=== PATIENT | male | born 1940 | race Caucasian/White ===

== ENCOUNTER → 2016-10-13 | Outpatient (CLI) | payer MEDICARE, OTHER ==
[~2016-10-13] MED LIST: /PANT40TA OR; /TAMS4CA PO; AMBI5TAB OR; ATEN50TA2 PO; BABY81CH OR; BENA40TA2 PO; COENCAP OR; COZA50TA18 OR; DARV100T PO; EFFE150C PO; EXCETAB PO; FLEXERIL PO; FURO20TA2 PO; GLUCOVANCE PO; HUMA100I3 SC; LANTINJ4 SC; LUMIGAN EYE DROPS OU; MULTIVIT PO; NEBIVOLOL OR; NIAC500C OR; NITR0.4S SL; NOVO70VL SC; OMEP20TA7 PO; PRED5TAB PO; REPA2TA OR; SIMV20TA2 OR; SIMV20TA2 PO; SPIR25TA2 OR; TRAM50TA2 PO; VENL100T OR
[2016-10-13 13:57] LABS: ALBUMIN 3.5 GM/DL (3.2-5.2); ALBUMIN/GLOBULIN RATIO 1.09 (1.00-1.93); BILIRUBIN,TOTAL 0.5 MG/DL (0.2-1.0); CALCIUM LEVEL 8.8 MG/DL (8.8-10.2); CREATININE FOR GFR 1.36 MG/DL (0.70-1.30); GLOMERULAR FILTRATION RATE 54.1 (>42); POTASSIUM SERUM 4.5 MEQ/L (3.5-5.1); TOTAL PROTEIN 6.7 GM/DL (6.4-8.2)
== END ==
LOC: M SMT 09:25
PROVIDERS: ATTEND Physician Assistant
DX: E11.65 Type 2 diabetes mellitus with hyperglycemia (principal)

== ENCOUNTER → 2016-12-26 | Outpatient (CLI) | payer MEDICARE, OTHER ==
[~2016-12-26] MED LIST changes: +ACET-159 PO; +ASPI1TAB24 PO; +FISH1000 PO; +FLOM5CAP PO; +HYDR25T PO; +LOSA100T36 PO; +MULT1TAB10 PO; +OMEP20CA3 PO; +SPIR25TA2 PO; +TRES1INJ SC; +VENL150T PO
[2016-12-26 12:45] LABS: ALBUMIN 3.5 GM/DL (3.2-5.2); ALBUMIN/GLOBULIN RATIO 1.06 (1.00-1.93); ALKALINE PHOSPHATASE 94 U/L (45-117); ALT/SGPT 27 U/L (12-78); ANION GAP 8 MEQ/L (8-16); AST/SGOT 16 U/L (15-37); BILIRUBIN,TOTAL 0.6 MG/DL (0.2-1.0); BLOOD UREA NITROGEN 20 MG/DL (7-18); CALCIUM LEVEL 8.6 MG/DL (8.8-10.2); CARBON DIOXIDE LEVEL 27 MEQ/L (21-32); CHLORIDE LEVEL 103 MEQ/L (98-107); CHOLESTEROL LEVEL 183 MG/DL (<200); CREATININE FOR GFR 1.21 MG/DL (0.70-1.30); FREE T4 1.07 NG/DL (0.76-1.46); GLOMERULAR FILTRATION RATE > 60.0 (>42); GLUCOSE, FASTING 251 MG/DL (83-110); POTASSIUM SERUM 4.1 MEQ/L (3.5-5.1); SODIUM LEVEL 138 MEQ/L (136-145); TOTAL PROTEIN 6.8 GM/DL (6.4-8.2); TRIGLYCERIDES LEVEL 215 MG/DL (<150)
== END ==
LOC: M WUC 09:50
PROVIDERS: ATTEND Family Medicine
DX: E11.65 Type 2 diabetes mellitus with hyperglycemia (principal)

== ENCOUNTER → 2017-01-03 | Outpatient (CLI) | payer MEDICARE, OTHER ==
[~2017-01-03] MED LIST changes: +BYST5TAB2 PO; +GABA-283 PO; +NORCOTAB PO; +TYLE325T5 PO
--- NOTE | 2017-01-03 15:20 | REP ---
Left hip series: Two views. History: Pain in the left hip. Findings: AP and frog-leg views of the left hip demonstrate smooth rounded femoral head and intact hip joint space. Periarticular soft tissues are unremarkable. No erosive changes seen. Impression: Negative views of the left hip. Signed by Dawood Simms MD 01/03/2017 03:53 P
== END ==
LOC: M SMT 11:53
PROVIDERS: ATTEND Physician Assistant
DX: M25.552 Pain in left hip (principal)

== ENCOUNTER 2017-01-06 09:13 | Emergency (ER) | payer MEDICARE, OTHER ==
[~2017-01-06] VITALS: Ht 188 cm; Wt 111.6 kg
[~2017-01-06 09:13] MED LIST changes: -BYST5TAB2 PO; -GABA-283 PO; -NORCOTAB PO; -TYLE325T5 PO
[2017-01-06] MEDS ORDERED: BYST5TAB2 PO (09:28)
[2017-01-06] MEDS ORDERED: GABA-283 PO (09:28)
[2017-01-06] MEDS ORDERED: TYLE325T5 PO (09:28)
[2017-01-06] MEDS ORDERED: NORCO, ANEXSIA 5/325MG TABLET (HYDROcodone/ACETAMINOPHEN) PO ONE (10:15)
--- NOTE | 2017-01-06 10:44 | REP ---
Left lower extremity Duplex Doppler venous ultrasound: Real time compression and duplex Doppler interrogation of the left lower extremity deep venous system is performed. The left common femoral, superficial femoral and popliteal veins are fully compressible with transducer pressure and demonstrate normal spontaneous and phasic flow, without evidence of deep venous thrombosis. Impression: No evidence of deep venous thrombosis of the left lower extremity femoral popliteal venous system. Signed by Aniceto Loya MD 01/06/2017 10:35 A
[2017-01-06] MEDS ORDERED: NORCOTAB PO (11:07)
[2017-01-06 11:13] VITALS: BP 152/78
[2017-01-11] MEDS ORDERED: VENL100T PO (14:07)
[2017-01-11] MEDS ORDERED: KETO10TAB PO (14:07)
[2017-01-11] MEDS ORDERED: ORPH-8 PO (14:07)
== END 2017-01-06 11:22 | disposition home or self-care (01) ==
LOC: M ED 10:18
DX: M54.32 Sciatica, left side (principal); M79.89 Other specified soft tissue disorders

== ENCOUNTER → 2017-01-18 | Day surgery (SDC) | payer MEDICARE, OTHER ==
[~2017-01-18] VITALS: Ht 188 cm; Wt 111.6 kg
[~2017-01-18] MED LIST changes: +ACETAMINOPHEN 325 MG TAB PO PRN; +ACETYLCHOLINE OPHTH SOLN 1% 2ML As Ordered ONE; +AcetaZOLAMIDE 500 MG ER CAP PO ONE; +BSS with VANC/TOB/EPI for EYE CASES IR ONE; +BYST5TAB2 PO; +CEFUROXIME 1MG/0.1ML INTRACAMERAL INJ As Ordered ONE; +CYCLOPENTOLATE 2% OPHTH SOLN OD ONE; +D5W/0.2% SODIUM CHLORIDE 250 ML IV SCH; +GABA-283 PO; +HEALON DUET (HEALON 10MG/ML 0.55ML & HEALON ENDOCOAT 30MG/ML 0.85ML) As Ordered ONE; +HumaLOG INSULIN (NovoLOG) PER UNIT As Ordered ONE; +HumaLOG INSULIN (NovoLOG) PER UNIT SC ONE; +KETO10TAB PO; +KETOROLAC 0.5% OPHTH SOLN OD ONE; +LIDOCAINE 1% SDV 5 ML VIAL As Ordered ONE; +LIDOCAINE 4% INJ 5 ML AMP OU ONE; +MIDAZOLAM INJ 2 MG/2 ML VIAL (J2250) As Ordered ONE; +NORCOTAB PO; +OFLOXACIN 0.3 % (OCUFLOX) OPTH SOL 5ML OD ONE; +ORPH-8 PO; +PHENYLEPHRINE 2.5% OPHTH SOL 2ML OD ONE; +POVIDONE-IODINE 5% OPHTH PREP SOL 30ML As Ordered ONE; +PROPARACAINE 0.5% OPHTH SOL 15ML OD PRN; +TRIMETHOBENZAMIDE 300 MG CAP PO PRN; +TROPICAMIDE 1% OPHTH SOLN 2 ML OD ONE; +TYLE325T5 PO; +VENL100T PO; +fentaNYL 100 MCG/2 ML INJECTION (J3010) As Ordered ONE
[2017-01-18 09:00] VITALS: BP 182/88
--- NOTE | 2017-01-18 12:38 | RO ---
DATE OF SURGERY: 01/18/2017 PREOPERATIVE DIAGNOSES: Cataract right eye, myosis right eye, glaucoma right eye. POSTOPERATIVE DIAGNOSES: PROCEDURE: Phacoemulsification with intraocular lens implantation power PCB00 18.5 diopter, also placement of the Malyugin ring 7 mm ring and endocyclophotocoagulation, along with placement of the Glaukos iStent right eye. SURGEON: Bob Adams MD EMERGENCY DETAIL DRIVER: None. ANESTHESIA: DESCRIPTION OF PROCEDURE: Procedure in detail: The patient was brought to the operating room, laid in supine position. The right eye was prepped and draped in a sterile fashion for ophthalmic surgery. Lid speculum was placed. A sideport incision was made, and EndoCoat was injected into the anterior chamber. A temporal clear cornea incision was then made with a 2.5 mm keratome, and capsulorrhexis was done. This was followed by hydrodissection and phacoemulsification in a [id number] method within the capsular bag. Extra cortical material was then aspirated and Healon injected into the capsular bag. This was followed by injection of intraocular lens into the bag. Healon was then placed in the ciliary sulcus to visualize the ciliary process on the video screen with the help of the EndoProbe. Endocyclophotocoagulation was then carried out along 280 degrees at 0.25 mW. Good results were noted as the ciliary processes were observed to shrink. After this, the Healon was placed into the anterior chamber to visualize the infranasal trabecular meshwork under high magnification with the patient's head turned away from the surgeon and microscope turned towards the surgeon. With the help of the goniolens, the iStent was placed. Good reflux of blood was noted. Excess viscoelastic was then aspirated and the wound hydrated. Lid speculum removed. The patient returned to the recovery room in stable condition.
== END | disposition home or self-care (01) ==
LOC: M SDC 05:50
PROVIDERS: ATTEND Ophthalmology
DX: H26.9 Unspecified cataract (principal); H57.03 Miosis; H40.9 Unspecified glaucoma; I25.2 Old myocardial infarction; I10 Essential (primary) hypertension; E78.00 Pure hypercholesterolemia, unspecified; R60.0 Localized edema; E10.40 Type 1 diabetes mellitus with diabetic neuropathy, unspecified; E04.1 Nontoxic single thyroid nodule; R13.10 Dysphagia, unspecified; K21.9 Gastro-esophageal reflux disease without esophagitis; M12.9 Arthropathy, unspecified; R29.898 Other symptoms and signs involving the musculoskeletal system; M54.2 Cervicalgia; M54.5 Low back pain; G89.29 Other chronic pain; L85.3 Xerosis cutis; F41.9 Anxiety disorder, unspecified; F32.9 Major depressive disorder, single episode, unspecified; G43.909 Migraine, unspecified, not intractable, without status migrainosus; R06.83 Snoring; G47.33 Obstructive sleep apnea (adult) (pediatric); N40.0 Benign prostatic hyperplasia without lower urinary tract symptoms; Z79.899 Other long term (current) drug therapy; Z79.4 Long term (current) use of insulin; Z79.82 Long term (current) use of aspirin; Z86.11 Personal history of tuberculosis
CPT/HCPCS: 66711; 66982; C1783; J2250; J3010; V2632

== ENCOUNTER → 2017-03-29 | Outpatient (CLI) | payer MEDICARE, OTHER ==
[~2017-03-29] MED LIST changes: -ACETAMINOPHEN 325 MG TAB PO PRN; -ACETYLCHOLINE OPHTH SOLN 1% 2ML As Ordered ONE; +ASPI-161 PO; -ASPI1TAB24 PO; -AcetaZOLAMIDE 500 MG ER CAP PO ONE; -BSS with VANC/TOB/EPI for EYE CASES IR ONE; -CEFUROXIME 1MG/0.1ML INTRACAMERAL INJ As Ordered ONE; -CYCLOPENTOLATE 2% OPHTH SOLN OD ONE; -D5W/0.2% SODIUM CHLORIDE 250 ML IV SCH; +FARX1TAB3 PO; -HEALON DUET (HEALON 10MG/ML 0.55ML & HEALON ENDOCOAT 30MG/ML 0.85ML) As Ordered ONE; +HYDR-3363 PO; -HYDR25T PO; -HumaLOG INSULIN (NovoLOG) PER UNIT As Ordered ONE; -HumaLOG INSULIN (NovoLOG) PER UNIT SC ONE; -KETOROLAC 0.5% OPHTH SOLN OD ONE; -LIDOCAINE 1% SDV 5 ML VIAL As Ordered ONE; -LIDOCAINE 4% INJ 5 ML AMP OU ONE; -MIDAZOLAM INJ 2 MG/2 ML VIAL (J2250) As Ordered ONE; -OFLOXACIN 0.3 % (OCUFLOX) OPTH SOL 5ML OD ONE; -PHENYLEPHRINE 2.5% OPHTH SOL 2ML OD ONE; -POVIDONE-IODINE 5% OPHTH PREP SOL 30ML As Ordered ONE; -PROPARACAINE 0.5% OPHTH SOL 15ML OD PRN; -TRIMETHOBENZAMIDE 300 MG CAP PO PRN; -TROPICAMIDE 1% OPHTH SOLN 2 ML OD ONE; -fentaNYL 100 MCG/2 ML INJECTION (J3010) As Ordered ONE
[2017-03-29 10:41] LABS: ANION GAP 5 MEQ/L (8-16); BLOOD UREA NITROGEN 13 MG/DL (7-18); CALCIUM LEVEL 9.1 MG/DL (8.8-10.2); CARBON DIOXIDE LEVEL 32 MEQ/L (21-32); CHLORIDE LEVEL 105 MEQ/L (98-107); CREATININE FOR GFR 1.15 MG/DL (0.70-1.30); GLOMERULAR FILTRATION RATE > 60.0 (>42); GLUCOSE, FASTING 207 MG/DL (83-110); POTASSIUM SERUM 4.2 MEQ/L (3.5-5.1); SODIUM LEVEL 142 MEQ/L (136-145)
== END ==
LOC: M SMT 08:35
PROVIDERS: ATTEND Physician Assistant
DX: E11.65 Type 2 diabetes mellitus with hyperglycemia (principal)

== ENCOUNTER 2017-04-11 09:07 | Emergency (ER) | payer MEDICARE, OTHER ==
[~2017-04-11] VITALS: Ht 188 cm; Wt 107.7 kg
[2017-04-11 09:07] VITALS: BP 162/72
[~2017-04-11 09:07] MED LIST changes: -FARX1TAB3 PO
[2017-06-22] MEDS ORDERED: FARX1TAB3 PO (10:17)
== END 2017-04-11 10:15 | disposition home or self-care (01) ==
LOC: M ED 09:07
DX: H10.31 Unspecified acute conjunctivitis, right eye (principal); I71.4 Abdominal aortic aneurysm, without rupture; E04.2 Nontoxic multinodular goiter; E11.9 Type 2 diabetes mellitus without complications; I10 Essential (primary) hypertension; I25.2 Old myocardial infarction; Z79.82 Long term (current) use of aspirin; Z79.899 Other long term (current) drug therapy

== ENCOUNTER → 2017-04-11 | Outpatient (CLI) | payer MEDICARE, OTHER ==
--- NOTE | 2017-04-11 09:44 | REP ---
Thyroid sonography: History: Nontoxic thyroid nodule. Comparison study November 09, 2015. Findings: The patient is status post right thyroid lobectomy in the . The left lobe is enlarged measuring 6.6 x 3.9 x 3.3 cm. This is slightly larger than on the November 09, 2015 study. There is a 2.6 x 1.6 x 2.0 cm hypoechoic ill-defined nodule in the upper pole. A 2.0 x 1.5 x 1.8 cm nodule is seen more inferiorly in the left lobe. The upper pole lesion measures a little larger than on the prior study. Impression: Right thyroid lobectomy. Two hypoechoic solid nodules in the left lobe consistent with multinodular goiter. Left lobe is somewhat enlarged. Signed by Dawood Simms MD 04/11/2017 04:01 P
== END ==
LOC: M RAD 08:27
PROVIDERS: ATTEND Physician Assistant Medical
DX: E04.2 Nontoxic multinodular goiter (principal)

== ENCOUNTER → 2017-04-11 | Outpatient (CLI) | payer MEDICARE, OTHER ==
--- NOTE | 2017-04-11 09:42 | REP ---
Abdominal aortic sonography: History: Abdominal aortic aneurysm without rupture. Findings: The abdominal aorta measures 1.3 x 1.3 cm in AP by transverse dimension at the diaphragmatic hiatus. At mid aortic level, its dimensions are 1.3 x 1.7 cm AP by transverse. There is a distal aortic aneurysm which is small measuring 2.9 cm anterior to posterior by 2.8 cm transverse. The common iliac arteries are not aneurysmal measuring 0.8 and 0.7 cm in AP dimension on the right and left respectively. No periaortic disease is seen. Impression: Small infrarenal abdominal aortic aneurysm, 2.9 cm anterior to posterior. Signed by Dawood Simms MD 04/11/2017 04:01 P
== END ==
LOC: M RAD 08:30
PROVIDERS: ATTEND Family Medicine
DX: I71.4 Abdominal aortic aneurysm, without rupture (principal)

== ENCOUNTER → 2017-04-14 | Outpatient (CLI) | payer MEDICARE, OTHER ==
[~2017-04-14] MED LIST changes: +FARX1TAB3 PO
== END ==
LOC: M SMT 09:28
PROVIDERS: ATTEND Physician Assistant Medical
DX: E04.1 Nontoxic single thyroid nodule (principal)

== ENCOUNTER 2017-07-05 09:30 | Day surgery (SDC) | payer MEDICARE, OTHER ==
[~2017-07-05] VITALS: Ht 188 cm; Wt 107.0 kg
[~2017-07-05 09:30] MED LIST changes: +ACETAMINOPHEN 325 MG TAB PO PRN; +BSS with VANC/TOB/EPI for EYE CASES IR ONE; +CYCLOPENTOLATE 2% OPHTH SOLN 2ML BTL OS ONE; +LIDOCAINE 3.5 % 1ML OPHTH TOPICAL GEL OU ONE; +MIDAZOLAM INJ 2 MG/2 ML VIAL (J2250) As Ordered ONE; +OFLOXACIN 0.3 % (OCUFLOX) OPTH SOL 5ML OS ONE; +PHENYLEPHRINE 2.5% OPHTH SOL 2ML OS ONE; +PROPARACAINE 0.5% OPHTH SOL 15ML OS PRN; +TROPICAMIDE 1% OPHTH SOLN 2ML OS ONE; +fentaNYL 100 MCG/2 ML INJECTION (J3010) As Ordered ONE
[2017-07-05] MEDS ORDERED: LR 500 ML IV ONE (09:45)
[2017-07-05] MEDS ORDERED: POVIDONE-IODINE 5% OPHTH PREP SOL 30ML As Ordered ONE (10:30)
[2017-07-05] MEDS ORDERED: LIDOCAINE 1% SDV 5 ML VIAL As Ordered ONE (10:31)
[2017-07-05] MEDS ORDERED: HEALON DUET (HEALON 10MG/ML 0.55ML & HEALON ENDOCOAT 30MG/ML 0.85ML) As Ordered ONE (10:31)
[2017-07-05] MEDS ORDERED: CEFUROXIME 1MG/0.1ML INTRACAMERAL INJ As Ordered ONE (10:31)
[2017-07-05] MEDS ORDERED: AcetaZOLAMIDE 500 MG ER CAP PO ONE (11:30)
[2017-07-05] MEDS ORDERED: TRIMETHOBENZAMIDE 300 MG CAP PO PRN (11:30)
[2017-07-05] MEDS ORDERED: KETOROLAC 0.5% OPHTH SOLN OS ONE (11:30)
[2017-07-05 11:45] VITALS: BP 158/80
--- NOTE | 2017-07-06 07:24 | RO ---
DATE OF PROCEDURE: 07/05/2017 PREPROCEDURE DIAGNOSES: Glaucoma left eye, cataract left eye and myosis and floppy iris syndrome, left eye. POSTPROCEDURE DIAGNOSES: PROCEDURE: Phacoemulsification intraocular lens implantation of Hoya power 18.5 diopters along with insertion of the Malyugin ring 7 mm and endocyclophotocoagulation along with placement of the Glaukos iStent device. SURGEON: Dr. Bob Adams, BRIDGE WELDER: None. ANESTHESIA: COMPLICATIONS: None. DESCRIPTION OF PROCEDURE: The patient was brought to the operating room, laid in supine position. The eye was prepped and draped in a sterile fashion for ophthalmic surgery and a lid speculum was placed. A sideport incision was made and EndoCoat was injected into the anterior chamber. This was followed by a 2.5 mm keratome, to do the temporal clear corneal incision. This was followed by capsulorrhexis and hydrodissection. Prior to capsulorrhexis the floppy iris and myotic pupil was then dilated by insertion of the 7 mm Malyugin ring with the help of the introducer. Once the pupil was dilated, capsulorrhexis hydrodissection was carried out. Phacoemulsification was done in a divided and conquer method within the capsular bag followed by aspiration of the cortical material. Healon was then placed in the capsular bag and intraocular lens inserted. Healon was then placed in the ciliary sulcus to visualize the ciliary processes on the video screen with the help of the EndoProbe. With the setting at 0.25 to 3 milliwatts, endocyclophotocoagulation was then carried out for 280 degrees with good shrinking of the ciliary process noted on the video screen. Following this, Healon was then placed in the anterior chamber. The patient's eye was rotated away from the surgeon and the head as well. The microscope was rotated towards the surgeon. Under high magnification, with the help of the Gonio lens, the Glaukos iStent was placed in the infranasal quadrant. Good blood reflux was noted. Excess viscoelastic was aspirated, the wound was hydrated. Malyugan ring was removed, intracameral cefuroxime was given and the patient was transferred to the recovery room in stable condition after removing the lid speculum.
== END 2017-07-05 11:50 | disposition home or self-care (01) ==
LOC: M SDC 09:30
PROVIDERS: ATTEND Ophthalmology
DX: H26.9 Unspecified cataract (principal); H57.03 Miosis; H21.81 Floppy iris syndrome; H40.9 Unspecified glaucoma; R07.9 Chest pain, unspecified; I25.10 Atherosclerotic heart disease of native coronary artery without angina pectoris; I25.2 Old myocardial infarction; I10 Essential (primary) hypertension; E78.00 Pure hypercholesterolemia, unspecified; R60.0 Localized edema; E11.9 Type 2 diabetes mellitus without complications; E04.1 Nontoxic single thyroid nodule; R13.10 Dysphagia, unspecified; K21.9 Gastro-esophageal reflux disease without esophagitis; M12.9 Arthropathy, unspecified; M54.2 Cervicalgia; M79.671 Pain in right foot; R20.2 Paresthesia of skin; F41.9 Anxiety disorder, unspecified; L85.3 Xerosis cutis; R29.898 Other symptoms and signs involving the musculoskeletal system; F32.9 Major depressive disorder, single episode, unspecified; G43.909 Migraine, unspecified, not intractable, without status migrainosus; R06.83 Snoring; G47.33 Obstructive sleep apnea (adult) (pediatric); G62.9 Polyneuropathy, unspecified; N40.0 Benign prostatic hyperplasia without lower urinary tract symptoms; Z79.82 Long term (current) use of aspirin; Z79.4 Long term (current) use of insulin; Z86.11 Personal history of tuberculosis; Z97.8 Presence of other specified devices
CPT/HCPCS: 66711; 66982; C1783; J2250; J3010; V2632

== ENCOUNTER → 2017-08-29 | Outpatient (CLI) | payer MEDICARE, OTHER ==
[~2017-08-29] MED LIST changes: -ACETAMINOPHEN 325 MG TAB PO PRN; -BSS with VANC/TOB/EPI for EYE CASES IR ONE; -CYCLOPENTOLATE 2% OPHTH SOLN 2ML BTL OS ONE; -LIDOCAINE 3.5 % 1ML OPHTH TOPICAL GEL OU ONE; -MIDAZOLAM INJ 2 MG/2 ML VIAL (J2250) As Ordered ONE; -OFLOXACIN 0.3 % (OCUFLOX) OPTH SOL 5ML OS ONE; -PHENYLEPHRINE 2.5% OPHTH SOL 2ML OS ONE; -PROPARACAINE 0.5% OPHTH SOL 15ML OS PRN; -TROPICAMIDE 1% OPHTH SOLN 2ML OS ONE; -fentaNYL 100 MCG/2 ML INJECTION (J3010) As Ordered ONE
--- NOTE | 2017-08-29 13:25 | REP ---
CT CERVICAL SPINE WITHOUT CONTRAST: HISTORY: Spondylosis. The patient is status post C5-7 anterior spinal fusion. A fixation plate and bone graft material are present. Disc bulges are present at the C3-4 and C4-5 levels. Small posterior osteophytes are present at the C5-6 and C6-7 levels. There is minimal narrowing of the spinal canal. Uncinate process and/or facet hypertrophy are present at the C3-4 through C5-6 levels. These findings produce minimal narrowing of the neural foramina. There is partial fusion of the anterior C1_ neural arch with the odontoid process with associated sclerosis and osteophyte formation. There is no subluxation. There is loss of the normal lordotic curve. IMPRESSION: 1. The patient is status post C5-7 anterior spinal fusion. There is anatomic alignment. 2. There is cervical spondylosis at the C1-2 and C3-4 through C6-7 levels. Signed by Dejuan Ortiz MD 08/29/2017 01:34 P
== END ==
LOC: M RAD 09:20
PROVIDERS: ATTEND Nurse Practitioner Family
DX: M47.812 Spondylosis without myelopathy or radiculopathy, cervical region (principal)

== ENCOUNTER → 2017-10-25 | Outpatient (CLI) | payer MEDICARE, OTHER ==
[2017-10-25 14:02] LABS: ANION GAP 5 MEQ/L (8-16); BLOOD UREA NITROGEN 22 MG/DL (7-18); CALCIUM LEVEL 9.4 MG/DL (8.8-10.2); CARBON DIOXIDE LEVEL 32 MEQ/L (21-32); CHLORIDE LEVEL 103 MEQ/L (98-107); GLOMERULAR FILTRATION RATE 52.2 (>42); GLUCOSE, FASTING 170 MG/DL (70-100); POTASSIUM SERUM 4.9 MEQ/L (3.5-5.1); SODIUM LEVEL 140 MEQ/L (136-145)
[2017-10-25 14:26] LABS: ESTIMATED AVERAGE GLUCOSE 177 MG/DL (60-110); HEMOGLOBIN A1c 7.8 %
== END ==
LOC: M SMT 10:08
DX: M54.2 Cervicalgia (principal); E11.42 Type 2 diabetes mellitus with diabetic polyneuropathy
CPT/HCPCS: 83036

== ENCOUNTER → 2018-06-04 | Outpatient (CLI) | payer MEDICARE, OTHER ==
[2018-06-04 23:35] LABS: ANION GAP 9 MEQ/L (8-16); BLOOD UREA NITROGEN 20 MG/DL (7-18); CALCIUM LEVEL 9.2 MG/DL (8.8-10.2); CARBON DIOXIDE LEVEL 26 MEQ/L (21-32); CHLORIDE LEVEL 106 MEQ/L (98-107); CREATININE FOR GFR 1.27 MG/DL (0.70-1.30); GLOMERULAR FILTRATION RATE 58.4 (>42); GLUCOSE, FASTING 154 MG/DL (70-100); POTASSIUM SERUM 4.4 MEQ/L (3.5-5.1); SODIUM LEVEL 141 MEQ/L (136-145)
[2018-06-05 01:00] LABS: ESTIMATED AVERAGE GLUCOSE 183 MG/DL (60-110)
== END ==
LOC: M SMT 09:05
DX: E11.42 Type 2 diabetes mellitus with diabetic polyneuropathy (principal)
CPT/HCPCS: 83036

== ENCOUNTER → 2018-06-18 | Outpatient (REF) | payer MEDICARE, OTHER | LOC: M LAB REF 19:29 | DX: D36.7 Benign neoplasm of other specified sites (principal) | CPT/HCPCS: 88305 ==

== ENCOUNTER → 2018-09-27 | Outpatient (REF) | payer MEDICARE, OTHER ==
[~2018-09-27] MED LIST changes: +FLOM0.4C39 PO; -FLOM5CAP PO; -GABA-283 PO; +GABA-845 PO; -LOSA100T36 PO; +LOSA100T50 PO; +SPIR-10 PO; -SPIR25TA2 PO
[2018-09-27 14:50] LABS: ALBUMIN 3.5 GM/DL (3.2-5.2); BILIRUBIN,TOTAL 0.6 MG/DL (0.2-1.0); CALCIUM LEVEL 8.8 MG/DL (8.8-10.2); CHOLESTEROL RISK RATIO 4.676 (<5); CREATININE FOR GFR 1.3 MG/DL (0.70-1.30); FREE T4 0.94 NG/DL (0.76-1.46); GLOMERULAR FILTRATION RATE 56.7 (>42); POTASSIUM SERUM 4.2 MEQ/L (3.5-5.1); THYROID STIMULATING HORMONE 1.88 uIU/ML (0.358-3.740); TOTAL PROTEIN 6.5 GM/DL (6.4-8.2)
[2018-09-27 14:51] LABS: BASO # 0.1 10^3/uL (0.0-0.2); BASO % 0.8 % (0.0-1.0); EOS # 0.3 10^3/uL (0.0-0.50); EOS % 3.7 % (0.0-3.0); HEMATOCRIT 45.7 % (42.0-52.0); HEMOGLOBIN 15.4 g/dl (13.5-17.5); LYMPH # 2.2 10^3/uL (1.5-4.5); LYMPH % 27.8 % (24.0-44.0); MEAN CORPUSCULAR HEMOGLOBIN 30.4 pg (27.0-33.0); MEAN CORPUSCULAR HGB CONC 33.7 g/dl (32.0-36.5); MEAN CORPUSCULAR VOLUME 90.3 fl (80.0-96.0); MONO # 0.6 10^3/uL (0.0-0.8); MONO % 7.6 % (0.0-5.0); NEUTROPHILS # 4.6 10^3/uL (1.8-7.7); NEUTROPHILS % 59.5 % (36.0-66.0); PLATELET COUNT, AUTOMATED 203 10^3/uL (150-450); RED BLOOD COUNT 5.06 10^6/uL (4.30-6.10); WHITE BLOOD COUNT 7.8 10^3/uL (4.0-10.0)
[2018-09-27 17:28] LABS: MAU/CREAT RATIO 99.4 MCG/MG (0.0-30.0)
[2018-09-27 22:25] LABS: HEMOGLOBIN A1c 9.1 %
== END ==
LOC: M SMT 13:15
PROVIDERS: ATTEND Physician Assistant
DX: E11.42 Type 2 diabetes mellitus with diabetic polyneuropathy (principal); E78.2 Mixed hyperlipidemia; I71.4 Abdominal aortic aneurysm, without rupture; I10 Essential (primary) hypertension

== ENCOUNTER → 2019-01-28 | Outpatient (CLI) | payer MEDICARE, OTHER ==
[~2019-01-28] MED LIST changes: -/PANT40TA OR; -/TAMS4CA PO; +HYDR-3715 PO; -NORCOTAB PO; -ORPH-8 PO; +ORPH100T2 PO; +PROT1TAB2 OR; -REPA2TA OR; +REPA2TAB5 OR; -VENL150T PO; +VENL150T14 PO
[2019-01-28 10:38] LABS: BASO # 0.1 10^3/uL (0.0-0.2); EOS # 0.3 10^3/uL (0.0-0.50); EOS % 3.3 % (0.0-3.0); HEMATOCRIT 45.3 % (42.0-52.0); HEMOGLOBIN 15.4 g/dl (13.5-17.5); LYMPH # 1.7 10^3/uL (1.5-4.5); LYMPH % 20.9 % (24.0-44.0); MEAN CORPUSCULAR VOLUME 88.1 fl (80.0-96.0); MONO # 0.7 10^3/uL (0.0-0.8); MONO % 8.8 % (0.0-5.0); NEUTROPHILS # 5.3 10^3/uL (1.8-7.7); NEUTROPHILS % 65.6 % (36.0-66.0); PLATELET COUNT, AUTOMATED 205 10^3/uL (150-450); RED BLOOD COUNT 5.14 10^6/uL (4.30-6.10)
[2019-01-28 10:50] LABS: HEMOGLOBIN A1c 8.2 %
[2019-01-28 11:05] LABS: ALBUMIN 3.5 GM/DL (3.2-5.2); BILIRUBIN,TOTAL 0.6 MG/DL (0.2-1.0); CALCIUM LEVEL 8.5 MG/DL (8.8-10.2); CREATININE FOR GFR 1.31 MG/DL (0.70-1.30); GLOMERULAR FILTRATION RATE 56.2 (>42); TOTAL PROTEIN 6.6 GM/DL (6.4-8.2)
== END ==
LOC: M SMT 08:36
PROVIDERS: ATTEND Physician Assistant
DX: K21.9 Gastro-esophageal reflux disease without esophagitis (principal)

== ENCOUNTER → 2019-04-02 | Outpatient (CLI) | payer MEDICARE, OTHER ==
[~2019-04-02] MED LIST changes: -OMEP20CA3 PO; +OMEP20CA4 PO
[2019-04-02 18:46] LABS: BASO # 0.1 10^3/uL (0.0-0.2); BASO % 0.8 % (0.0-1.0); EOS # 0.3 10^3/uL (0.0-0.50); EOS % 3.1 % (0.0-3.0); HEMATOCRIT 45.9 % (42.0-52.0); HEMOGLOBIN 15.6 g/dl (13.5-17.5); LYMPH # 2.3 10^3/uL (1.5-4.5); LYMPH % 24.9 % (24.0-44.0); MEAN CORPUSCULAR HEMOGLOBIN 30.6 pg (27.0-33.0); MEAN CORPUSCULAR VOLUME 90.2 fl (80.0-96.0); MONO # 0.8 10^3/uL (0.0-0.8); MONO % 8.3 % (0.0-5.0); NEUTROPHILS # 5.7 10^3/uL (1.8-7.7); NEUTROPHILS % 62.4 % (36.0-66.0); PLATELET COUNT, AUTOMATED 210 10^3/uL (150-450); RED BLOOD COUNT 5.09 10^6/uL (4.30-6.10); WHITE BLOOD COUNT 9.1 10^3/uL (4.0-10.0)
[2019-04-02 18:58] LABS: APPEARANCE, URINE CLEAR (CLEAR); BACTERIA, URINE AUTO NEGATIVE (NEGATIVE); BILIRUBIN, URINE AUTO NEGATIVE (NEGATIVE); BLOOD, URINE BLOOD NEGATIVE (NEGATIVE); COLOR, URINE YELLOW (YELLOW); GLUCOSE, URINE (UA) AUTO 3+ mg/dL (NEGATIVE); KETONE, URINE AUTO NEGATIVE (NEGATIVE); LEUKOCYTE ESTERASE, URINE AUTO NEGATIVE (NEGATIVE); NITRITE, URINE AUTO NEGATIVE (NEGATIVE); PROTEIN, URINE AUTO NEGATIVE (NEGATIVE); RBC, URINE AUTO 0 /HPF (0-3); SPECIFIC GRAVITY URINE AUTO 1.013 (1.002-1.035); SQUAMOUS EPITHELIAL CELL UR AU 0 /HPF (0-6); UROBILINOGEN, URINE AUTO 0.2 mg/dL (0.0-2.0); WBC, URINE AUTO 0 /HPF (0-3)
[2019-04-02 19:03] LABS: ALBUMIN 3.5 GM/DL (3.2-5.2); BILIRUBIN,TOTAL 0.4 MG/DL (0.2-1.0); CALCIUM LEVEL 8.5 MG/DL (8.8-10.2); CHOLESTEROL RISK RATIO 4.17 (<5); CREATININE FOR GFR 1.54 MG/DL (0.70-1.30); GLOMERULAR FILTRATION RATE 46.6 (>42); POTASSIUM SERUM 4.2 MEQ/L (3.5-5.1); TOTAL PROTEIN 6.9 GM/DL (6.4-8.2)
[2019-04-02 19:10] LABS: CREATININE, URINE 81.3 MG/DL; MALB URINE SIEMENS 60.8 MG/L; MAU/CREAT RATIO 74.7 MCG/MG (0.0-30.0)
[2019-04-02 19:34] LABS: HEMOGLOBIN A1c 8.3 %
== END ==
LOC: M SMT 13:44
PROVIDERS: ATTEND Physician Assistant
DX: Z01.818 Encounter for other preprocedural examination (principal); E11.42 Type 2 diabetes mellitus with diabetic polyneuropathy

== ENCOUNTER → 2019-06-12 | Outpatient (CLI) | payer MEDICARE, OTHER ==
[~2019-06-12] MED LIST changes: +OMEP1CAP73 PO; -OMEP20CA4 PO; +SIMV20TA22 PO
--- NOTE | 2019-06-12 15:53 | REPVR ---
PROCEDURE INFORMATION: Exam: CT Cervical Spine Without Contrast EXAM DATE/TIME: 06/12/2019 8:56 AM Exam date and time: 06/12/2019 8:56 AM Clinical history: 78 years old, male; Pain; Additional info: Disc degeneration TECHNIQUE: Imaging protocol: Computed tomography images of the cervical spine without contrast. Radiation optimization: All CT scans at this facility use at least one of these dose optimization techniques: automated exposure control; mA and/or kV adjustment per patient size (includes targeted exams where dose is matched to clinical indication); or iterative reconstruction. COMPARISON: CT Spine,cervical w/o contrast 08/29/2017 9:33 AM FINDINGS: Vertebrae: Diminished cervical lordosis. Anterior fusion extending from C5-C7 with associated beam hardening artifact. Anatomic alignment. Discs/Spinal canal/Neural foramina: Multilevel degenerative change and prominent facet arthropathy. Note that assessment of disc, spinal cord, and nerve root pathology is limited in the absence of intrathecal contrast. Soft tissues: Ligamentous calcification. Nasopharynx: Nondistention of the right fossa of Rosenmuller. Hypopharynx: Nondistention of the right pyriform sinus. Thyroid: Inhomogeneous attenuation and calcification in the enlarged left thyroid. Status post right thyroidectomy. Lungs: Apical scarring and interstitial prominence. Vasculature: Vascular calcification. When correlating with the previous study, no significant interval changes are present. IMPRESSION: Stable postoperative appearance of the cervical spine, not significantly changed from 08/29/2017. Electronically signed by: Butch Monsalve On 06/12/2019 15:53:13 PM
== END ==
LOC: M RAD 08:48
PROVIDERS: ATTEND Nurse Practitioner Family
DX: M50.320 Other cervical disc degeneration, mid-cervical region, unspecified level (principal)

== ENCOUNTER → 2019-09-09 | Outpatient (CLI) | payer MEDICARE, OTHER ==
[~2019-09-09] MED LIST changes: +OMEP-172 PO; -OMEP1CAP73 PO
[2019-09-09 09:58] LABS: CALCIUM LEVEL 9.3 MG/DL (8.8-10.2); CREATININE FOR GFR 1.45 MG/DL (0.70-1.30); GLOMERULAR FILTRATION RATE 49.9 (>35); POTASSIUM SERUM 4.2 MEQ/L (3.5-5.1)
[2019-09-09 11:12] LABS: HEMOGLOBIN A1c 8.4 %
== END ==
LOC: M WUC 08:22
PROVIDERS: ATTEND Physician Assistant
DX: E11.42 Type 2 diabetes mellitus with diabetic polyneuropathy (principal)

== ENCOUNTER → 2020-02-20 | Outpatient (CLI) | payer MEDICARE, OTHER ==
[~2020-02-20] MED LIST changes: -OMEP-172 PO; +OMEP1CAP73 PO
--- NOTE | 2020-02-20 17:09 | REP ---
CT INTERNAL AUDITORY CANAL STUDY WITHOUT CONTRAST: HISTORY: Pulsatile tinnitus. Comparison CT study, March 11, 2019. CT FINDINGS: Mastoid aeration is normal and symmetric. Internal auditory canals are normal in size bilaterally and are symmetric and unchanged. The vestibular and cochlear apparatus are unremarkable. Middle ear cavities are bilaterally aerated. Ossicle chain appears intact. No erosive change is appreciated. The otic capsule appears intact bilaterally. Some vascular calcification in the carotid siphons bilaterally. No other vascular abnormality is seen. No intraorbital abnormality is observed. IMPRESSION: Unremarkable petrous bone CT study. No bony destructive lesions seen. Some vascular calcification is noted. Negative IACs CT study. Electronically Signed by Dawood Simms MD 02/21/2020 09:11 A
== END ==
LOC: M RAD 15:11
PROVIDERS: ATTEND Physician Assistant Medical
DX: H93.A2 Pulsatile tinnitus, left ear (principal)

== ENCOUNTER → 2020-09-09 | Outpatient (CLI) | payer MEDICARE, OTHER | LOC: M PT 09:06 | PROVIDERS: ATTEND Family Medicine | DX: M50.90 Cervical disc disorder, unspecified, unspecified cervical region (principal) ==

== ENCOUNTER → 2020-11-16 | Outpatient (CLI) | payer MEDICARE, OTHER ==
[2020-11-16 11:46] LABS: BASO # 0.1 10^3/uL (0.0-0.2); BASO % 1.1 % (0.0-1.0); EOS # 0.4 10^3/uL (0.0-0.5); HEMATOCRIT 50.2 % (42.0-52.0); HEMOGLOBIN 16.6 g/dl (13.5-17.5); LYMPH # 2.1 10^3/uL (1.5-5.0); LYMPH % 28.9 % (24.0-44.0); MEAN CORPUSCULAR HEMOGLOBIN 29.6 pg (27.0-33.0); MEAN CORPUSCULAR HGB CONC 33.1 g/dl (32.0-36.5); MEAN CORPUSCULAR VOLUME 89.6 fl (80.0-96.0); MONO # 0.5 10^3/uL (0.0-0.8); MONO % 7.3 % (2.0-8.0); NEUTROPHILS # 4.1 10^3/uL (1.5-8.5); NEUTROPHILS % 56.3 % (36.0-66.0); PLATELET COUNT, AUTOMATED 195 10^3/uL (150-450); WHITE BLOOD COUNT 7.4 10^3/uL (4.0-10.0)
[2020-11-16 13:13] LABS: ALBUMIN 3.9 GM/DL (3.2-5.2); BILIRUBIN,TOTAL 0.7 MG/DL (0.2-1.0); CALCIUM LEVEL 9.3 MG/DL (8.8-10.2); CHOLESTEROL RISK RATIO 4.39 (<5); CREATININE FOR GFR 1.4 MG/DL (0.70-1.30); FREE T4 0.94 NG/DL (0.76-1.46); GLOMERULAR FILTRATION RATE 51.8 (>35); POTASSIUM SERUM 4.1 MEQ/L (3.5-5.1); THYROID STIMULATING HORMONE 1.99 uIU/ML (0.358-3.740); TOTAL PROTEIN 7.3 GM/DL (6.4-8.2)
[2020-11-16 13:27] LABS: HEMOGLOBIN A1c 10.7 %
== END ==
LOC: M WUC 09:38
PROVIDERS: ATTEND Physician Assistant
DX: I12.9 Hypertensive chronic kidney disease with stage 1 through stage 4 chronic kidney disease, or unspecified chronic kidney disease (principal); E11.42 Type 2 diabetes mellitus with diabetic polyneuropathy; E78.2 Mixed hyperlipidemia

== ENCOUNTER → 2021-03-15 | Outpatient (CLI) | payer MEDICARE, OTHER ==
[~2021-03-15] MED LIST changes: +GABA-283 PO; -GABA-845 PO
[2021-03-15 11:43] LABS: BASO # 0.1 10^3/uL (0.0-0.2); BASO % 1.1 % (0.0-1.0); EOS # 0.3 10^3/uL (0.0-0.5); EOS % 4.1 % (0.0-3.0); HEMATOCRIT 49.3 % (42.0-52.0); HEMOGLOBIN 16.4 g/dl (13.5-17.5); LYMPH # 2.2 10^3/uL (1.5-5.0); LYMPH % 28.5 % (24.0-44.0); MEAN CORPUSCULAR HEMOGLOBIN 29.4 pg (27.0-33.0); MEAN CORPUSCULAR HGB CONC 33.3 g/dl (32.0-36.5); MEAN CORPUSCULAR VOLUME 88.5 fl (80.0-96.0); MONO # 0.6 10^3/uL (0.0-0.8); MONO % 7.5 % (2.0-8.0); NEUTROPHILS # 4.6 10^3/uL (1.5-8.5); NEUTROPHILS % 58.4 % (36.0-66.0); PLATELET COUNT, AUTOMATED 216 10^3/uL (150-450); RED BLOOD COUNT 5.57 10^6/uL (4.30-6.10); WHITE BLOOD COUNT 7.9 10^3/uL (4.0-10.0)
[2021-03-15 12:29] LABS: ALBUMIN 3.6 GM/DL (3.2-5.2); ALT/SGPT 25 U/L (12-78); BILIRUBIN,TOTAL 0.8 MG/DL (0.2-1.0); BLOOD UREA NITROGEN 20 MG/DL (7-18); CALCIUM LEVEL 9.1 MG/DL (8.8-10.2); CARBON DIOXIDE LEVEL 30 MEQ/L (21-32); CHLORIDE LEVEL 105 MEQ/L (98-107); CHOLESTEROL LEVEL 240 MG/DL (<200); CHOLESTEROL RISK RATIO 6.315 (<5); CREATININE FOR GFR 1.17 MG/DL (0.70-1.30); FREE T4 0.85 NG/DL (0.76-1.46); GLOMERULAR FILTRATION RATE > 60.0 (>35); GLUCOSE, FASTING 264 MG/DL (70-100); HDL CHOLESTEROL 38 MG/DL (>40); LDL CHOLESTEROL 140 MG/DL (<100); NON-HDL-C 202 MG/DL; POTASSIUM SERUM 4.2 MEQ/L (3.5-5.1); SODIUM LEVEL 138 MEQ/L (136-145); TOTAL PROTEIN 7.2 GM/DL (6.4-8.2); TRIGLYCERIDES LEVEL 311 MG/DL (<150)
== END ==
LOC: M WUC 09:45
PROVIDERS: ATTEND Physician Assistant
DX: E11.42 Type 2 diabetes mellitus with diabetic polyneuropathy (principal); E78.2 Mixed hyperlipidemia; K21.9 Gastro-esophageal reflux disease without esophagitis

== ENCOUNTER → 2021-04-21 | Outpatient (CLI) | payer MEDICARE, OTHER ==
--- NOTE | 2021-04-21 13:18 | REP ---
INDICATION: PAIN IN RT HIP. COMPARISON: Two views of the left hip 01/03/2017 TECHNIQUE: A single AP view of the pelvis was performed. FINDINGS: There is mild bilateral buttressing. Dorsal column stimulator generator obscures the right hip joint. There is mild left hip joint space narrowing which has developed since the last exam as has the buttressing. There is no acute fracture, dislocation, or subluxation. IMPRESSION: Limitations and findings as described above. <Electronically signed by Johan Taylor > 04/21/21 [id number]
--- NOTE | 2021-04-21 13:48 | REP ---
INDICATION: PAIN IN RIGHT HIP. COMPARISON: None TECHNIQUE: AP and frog-lateral views FINDINGS: A dorsal column stimulator generator obscures the right hip joint. There is evidence of buttressing. There is no evidence of an acute fracture, dislocation, or subluxation. A large portion of the right femoral head could not be imaged. IMPRESSION: Chronic changes suspected on this very limited exam. <Electronically signed by Johan Taylor > 04/21/21 [id number]
== END ==
LOC: M RAD 11:45
PROVIDERS: ATTEND Physician Assistant
DX: M25.551 Pain in right hip (principal)

== ENCOUNTER → 2021-06-21 | Outpatient (CLI) | payer MEDICARE, OTHER ==
[2021-06-21 12:40] LABS: ALBUMIN 3.3 GM/DL (3.2-5.2); ALT/SGPT 26 U/L (12-78); BILIRUBIN,TOTAL 0.5 MG/DL (0.2-1.0); BLOOD UREA NITROGEN 16 MG/DL (7-18); CALCIUM LEVEL 9.4 MG/DL (8.8-10.2); CARBON DIOXIDE LEVEL 29 MEQ/L (21-32); CHLORIDE LEVEL 105 MEQ/L (98-107); CREATININE FOR GFR 1.13 MG/DL (0.70-1.30); GLOMERULAR FILTRATION RATE > 60.0 (>35); GLUCOSE, FASTING 227 MG/DL (70-100); SODIUM LEVEL 140 MEQ/L (136-145); TOTAL PROTEIN 6.4 GM/DL (6.4-8.2)
[2021-06-21 13:29] LABS: HEMOGLOBIN A1c 7.1 %
== END ==
LOC: M WUC 08:28
PROVIDERS: ATTEND Physician Assistant
DX: E11.42 Type 2 diabetes mellitus with diabetic polyneuropathy (principal)

== ENCOUNTER → 2021-07-05 | Outpatient (CLI) | payer MEDICARE, OTHER ==
--- NOTE | 2021-07-05 09:53 | REP ---
INDICATION: RECHECK AAA COMPARISON: 04/11/2017 TECHNIQUE: Real time cerda scale ultrasound examination using curved array transducer. FINDINGS: The abdominal aorta is stable when compared to prior examination and demonstrates short segment of mid aortic ectasia at 2.8 cm maximal diameter and 3.4 cm in length. 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 <Electronically signed by Calixto Mccarthy > 07/05/21 [id number]
== END ==
LOC: M RAD 08:30
PROVIDERS: ATTEND Physician Assistant
DX: I71.4 Abdominal aortic aneurysm, without rupture (principal)